=== PATIENT | female | born 1955 | race Caucasian/White ===

== ENCOUNTER → 2023-09-15 08:02 | Outpatient (REF) | payer BC, SELFPAY | LOC: RAD 08:02 | PROVIDERS: ATTENDING PHYSICIAN Family Medicine | DX: R06.02 Shortness of breath (principal) | CPT/HCPCS: 71046 ==

== ENCOUNTER → 2023-09-24 15:44 | Outpatient (REF) | payer BC, SELFPAY | LOC: HWRCS 15:44 | PROVIDERS: ATTENDING PHYSICIAN Family Medicine | DX: R06.02 Shortness of breath (principal) | CPT/HCPCS: 93306 ==

== ENCOUNTER 2023-11-22 15:01 | Inpatient (IN) | payer BC, MEDICARE, SELFPAY ==
[2023-11-22] VITALS (7 sets, daily range): BP systolic 129–155; BP diastolic 69–85; BMI 34.1
[2023-11-22 12:32] LABS: % Basophils 0.7 % (0-2); % Immature Granulocytes 0.4 % (0-0.5); % Lymphocytes 27.3 % (20.5-51.1); % Monocytes 7.9 % (1.7-9.3); % Neutrophils 62.7 % (42.2-75.2); Absolute Basophils 0.1 10^3/uL (0-0.2); Absolute Eosinophils 0.1 10^3/uL (0-0.7); Absolute Lymphocytes 2.3 10^3/uL (1.2-3.4); Absolute Monocytes 0.7 10^3/uL (0.1-0.6); Absolute Neutrophils 5.3 10^3/uL (1.4-6.5); Hematocrit 41.2 % (37.0-47.0); Hemoglobin 13.5 g/dL (12.0-16.0); Mean Corp Hgb Conc. 32.8 g/dL (33.0-37.0); Mean Corpuscular Hgb 29.8 pg (27.0-31.0); Mean Corpuscular Volume 90.9 fL (81.0-99.0); Mean Platelet Volume 11.2 fL (7.4-10.4); Nucleated Red Blood Cells % 0 %; Platelet Count 187 10^3/uL (130-400); Red Blood Cell Count 4.53 10^6/uL (4.20-5.40); Red Cell Dist. Width 13.8 % (11.5-14.5); White Blood Cell Count 8.4 10^3/uL (4.8-10.8)
[2023-11-22 12:41] LABS: INR 1.03; PT 13.3 Sec (11.4-14.6)
[2023-11-22 12:42] LABS: ALT (SGPT) 37 U/L (0-35); APTT 27.8 Sec (23.4-35.0); AST (SGOT) 34 U/L (14-36); Albumin 4.3 g/dl (3.5-5.0); Alkaline Phosphatase 67 U/L (38-126); Blood Urea Nitrogen 21 mg/dl (7-17); Calcium 9.8 mg/dl (8.4-10.2); Carbon Dioxide 23 mmol/L (22-30); Chloride 107 mmol/L (98-107); Glucose 103 mg/dl (70-99); Lipase 190 U/L (23-300); Potassium 4.3 mmol/L (3.5-5.1); Sodium 138 mmol/L (135-145); Total Bilirubin 0.7 mg/dl (0.2-1.3); eGFR > 60.00
--- NOTE | 2023-11-22 14:17 | ED.GENMED ---
History of Present Illness
General
Chief Complaint: Abdominal Symptoms
Source: patient
Exam Limitations: none
Time Seen by Provider: 11/22/23 14:04
Nursing documentation reviewed up to this point in time: agreed with
History of Present Illness
History of Present Illness:
68-year-old female presents emergency room complaining of abdominal cramping, diarrhea and passing blood clots. She takes Eliquis. This began last night.
Past History
Past History
ED Past Medical History: Arrthythmia
ED Past Surgical History: Brain (Meningioma removal 1993) and Orthopedic (Right Achilles tendon repair, right rotator cuff repair)
Social History
Tobacco: Non-smoker
Alcohol: None
Drug: None
Review of Systems
Review of Systems
Allergies reviewed?: Yes
All Other Systems: Not applicable
Constitutional: Reports no symptoms
EENT: Reports no symptoms
Respiratory: Reports no symptoms
Cardiac: Reports no symptoms
ABD/GI: Reports diarrhea and bloody stools
: Reports no symptoms
Musculoskeletal: Reports no symptoms
Skin: Reports no symptoms
Neurological: Reports no symptoms
Endocrine: Reports no symptoms
Hematologic/Lymphatic: Reports no symptoms
Psychiatric: Reports no symptoms
Phy Exam
Physical Exam
Physical Exam:
Physical Exam
General: no apparent distress, not acutely ill
Neck: supple. no meningeal signs. normal posterior pharynx
Heart: s1/s2 regular rate and rhythm, no murmur. equal radial
pulses.
HEENT: Pupils equal round reactive to light, EOMI
Lungs: no acute respiratory distress. clear bilaterally
Abdomen: normal bowel sounds. not tender. no CVAT
Neuro: alert and oriented. no focal neurological deficits cranial nerves II through XII intact
Skin: no rash
Psychiatric: well kept. interactive and cooperative
Extremities: no edema. no calf tenderness. negative homans. good distal pulses
Course
Orders/Labs/Results
Orders:
Orders
11/22/23 12:19
Type+Screen Urgent
Complete Blood Count/With Diff Urgent
Comprehensive Metabolic Panel Urgent
Lipase Urgent
PTT Urgent
Prothrombin Time Urgent
Abnormal Lab Results
11/22/23
12:19
MCHC 32.8 L g/dL
(33.0-37.0)
MPV 11.2 H fL
(7.4-10.4)
Absolute Monos (auto) 0.7 H 10^3/uL
(0.1-0.6)
BUN 21 H mg/dl
(7-17)
Glucose 103 H mg/dl
(70-99)
ALT 37 H U/L
(0-35)
11/22/23 12:19
11/22/23 12:19
Vital Signs
Initial and Last Documented VS:
Initial Vital Signs
Temp Pulse Resp BP Pulse Ox
98.2 F 57 16 153/78 97
11/22/23 12:05 11/22/23 12:05 11/22/23 12:05 11/22/23 12:05 11/22/23 12:05
Last Documented Vital Signs
Temp Pulse Resp BP Pulse Ox
98.2 F 57 16 153/78 97
11/22/23 12:05 11/22/23 12:05 11/22/23 12:05 11/22/23 12:05 11/22/23 12:05
MDM/Problems Addressed
Differential Diagnosis Includes:
GI bleed
MDM/Problems Addressed:
68-year-old female with lower GI bleed, unclear etiology. Patient taking Eliquis. Vital signs stable at this point, admit to hospitalist for further evaluation.
Chronic conditions affecting care: Arrhythmia
Acute Exacerbation and/or Progression of Chronic Illness: Arrhythmia
*Pulse Oximetry
Patient hypoxic: no
*EKG
Interpreted by ED Provider?: NA
*Plush Weaver Interpretation
Rate: normal
Interpretation: normal
Heart Rate: 60
Rhythm: sinus
*Critical Care Note
Total Time (30-74mins, 75-104mins- exclusive of procedures): Not Applicable
Data Reviewed
Review of Other/Old Records Reveals: Labs
Patient Management
Discussion with other providers: Hospitalist
Escalation/DeEscalation of care consider admission/obs:
Admit indicated
ED Attending Note
-
Portions of this chart may have been created with voice recognition software.� Occasional wrong word or��sound alike� substitutions may have occurred due to the inherent limitations of voice recognition software.
Discharge Plan
Departure
Patient Disposition: Admit
Date of Disposition: 11/22/23
Time of Disposition: 14:24
Admit to: Telemetry
Presentation/result/management discussed w/ accepting MD/DO: Hospitalist
Patient with high blood pressure during this ER visit?: Yes
Condition: Good
Discharge Problem:
Gastrointestinal bleeding
Referrals:
Kadie Oh MD [Family Provider] -
Interventions
Interventions:
*General Assessment Last Done: 11/22/23 12:05
*ED COVID-19 Vaccine History Last Done: 11/22/23 12:05
Discharge Date and Time
Print Language: TURKISH
--- NOTE | 2023-11-22 14:50 | HPS.HSE ---
Family Physician
-
Family Physician: Kadie Oh
Chief Complaint
-
Rectal bleed
History of Present Illness
Patient 68 years of history of A-fib on anticoagulation, hyperlipidemia, Barker's esophagus, came into the hospital with bright blood per rectum. Patient states that since last evening after dinner she started having diarrhea followed by a couple
episodes of bright blood per rectum associated with blood clots but patient thought that she was going to improve. This morning patient continued to have bright blood per rectum with more episodes of rectal bleed associated with blood clots so
decided to come to the hospital. She has been complaining of abdominal pain mild to moderate diffuse crampy. She denies fevers or chills. She had some nausea. Denies vomiting. She does take anticoagulation with Eliquis on a regular basis and
last dose she took it last evening around 8 PM. She did have a colonoscopy and an endoscopy relatively recently about a couple years ago but does not know all the details of results. She denies any chest pain or shortness of breath. In the ER
hemoglobin 13.5, BUN 21, she was referred to hospitalist service for further evaluation
Medical History
Past Medical History
Past Medical History: Reports Other (Barker's esophagus, hyperlipidemia, paroxysmal atrial fibrillation.)
Past Surgical History: Reports Other (EGD/colonoscopy couple years ago.)
Social History
Tobacco: Non-smoker
Alcohol: None
Drug: None
Family History
Family History: Not pertinent
Allergies / Home Medications
Allergies reflects when Allergies were last updated in Screen.
Home Medications with original date entered in Screen
Allergy/Medication List:
Allergies
Allergy/AdvReac Type Severity Reaction Status Date / Time
No Known Allergies Allergy Verified 11/22/23 12:13
Home Medications
apixaban 5 mg tablet (Eliquis) 5 mg PO BID 11/22/23
biotin 5 mg tablet 5 mg PO DAILY 11/22/23
cholecalciferol (vitamin D3) 25 mcg (1,000 unit) tablet (Vitamin D3) 25 mcg PO DAILY 11/22/23
magnesium oxide 400 mg PO DAILY 11/22/23
metoprolol tartrate 25 mg tablet 12.5 mg PO BID 11/22/23
rosuvastatin 5 mg tablet 5 mg PO DAILY 11/22/23
therapeutic multivitamin 1 tab PO DAILY 11/22/23
Review of Systems
-
A 12 point ROS was completed and negative except as noted: Yes
Physical Exam
Vital Signs
Vital Signs
Temp Pulse Resp BP Pulse Ox
98.2 F 57 16 153/78 97
11/22/23 12:05 11/22/23 12:05 11/22/23 12:05 11/22/23 12:05 11/22/23 12:05
Physical exam:
General: Acutely ill. Nontoxic
HEENT: Normocephalic, Atraumatic and Moist Mucous Membranes
Respiratory: Clear to Auscultation; Negative Wheezes, Rales or Rhonchi
Cardiac: Regular Rhythm and S1/S2
GI: Soft, Nontender and Nondistended
Musculoskeletal: No Clubbing, No Cyanosis and No Edema
Neuro: Awake, Alert and Oriented
Psych: Calm
Physical Exam
General: Other
Laboratory Results
-
11/22/23 12:19
11/22/23 12:19
Laboratory Results
PT 13.3 Sec (11.4-14.6) 11/22/23 12:19
INR 1.03 11/22/23 12:19
APTT 27.8 Sec (23.4-35.0) 11/22/23 12:19
Total Bilirubin 0.7 mg/dl (0.2-1.3) 11/22/23 12:19
AST 34 U/L (14-36) 11/22/23 12:19
ALT 37 U/L (0-35) H 11/22/23 12:19
Alkaline Phosphatase 67 U/L (38-126) 11/22/23 12:19
Lipase 190 U/L (23-300) 11/22/23 12:19
Data Reviewed
-
Lab Data: Labs Reviewed by me
Impression/Plan
-
IMPRESSION:
Patient is 68 years old female with history of Barker's esophagus and atrial fibrillation came into the hospital with bright blood per rectum. Patient has acute GI bleed. Patient at risk morbidity mortality therefore will need to be monitored in
the hospital and treated accordingly.
PLAN:
Acute GI bleed:
On clear liquid diet
Monitor hemoglobin
IV PPI twice daily
Hold anticoagulant
CTA of the abdomen if gets any worse
Stool studies if diarrhea recurs
Further recommendations based on clinical course
GI consult ([place] texted GI today)
Paroxysmal atrial fibrillation:
Continue rate control agents, metoprolol 12.5 mg twice a day
Hold anticoagulation due to GI bleed
Continue cardiac monitoring
Barker's esophagus:
On H2 garth as outpatient
Currently on PPI
Hyperlipidemia:
Continue statin
DVT prophylaxis:
SCDs
CODE STATUS:
Full code
Time spent 75 minutes
[2023-11-22] MEDS: NSS 1000 IV (15:53)
[2023-11-22] MEDS: CRESTOR 5 MG PO (17:06)
--- NOTE | 2023-11-22 17:46 | PTCARENOTE ---
rec'd pt from the ER. walked from stretcher to bed. denies pain. Nss infusing at 85ml/hr. tolerating clear liquids. call hare in reach.
[2023-11-22] MEDS: PROTONIX IV 40 MG IV (20:15)
[2023-11-22] MEDS: LOPRESSOR 12.5 MG PO (20:15)
[2023-11-22] MEDS: NSS (PRESERVATIVE FREE) 10 ML IV (20:16)
[2023-11-22 20:18] LABS: Hematocrit 38.3 % (37.0-47.0); Hemoglobin 12.6 g/dL (12.0-16.0)
[2023-11-23] MEDS: NSS 1000 IV (02:44)
[2023-11-23] MEDS: TYLENOL 650 MG PO (03:01)
[2023-11-23 03:21] VITALS: BP 156/78
[2023-11-23 06:45] VITALS: BP 163/85
[2023-11-23 07:35] LABS: Hematocrit 40.3 % (37.0-47.0); Hemoglobin 13.1 g/dL (12.0-16.0); Mean Corp Hgb Conc. 32.5 g/dL (33.0-37.0); Mean Corpuscular Hgb 30.2 pg (27.0-31.0); Mean Corpuscular Volume 92.9 fL (81.0-99.0); Mean Platelet Volume 11.4 fL (7.4-10.4); Platelet Count 188 10^3/uL (130-400); Red Blood Cell Count 4.34 10^6/uL (4.20-5.40); Red Cell Dist. Width 13.7 % (11.5-14.5); White Blood Cell Count 6.5 10^3/uL (4.8-10.8)
[2023-11-23 08:12] LABS: Blood Urea Nitrogen 13 mg/dl (7-17); Calcium 9.4 mg/dl (8.4-10.2); Carbon Dioxide 21 mmol/L (22-30); Chloride 110 mmol/L (98-107); Estimated Creatinine Clearance 93 ml/min; Glucose 100 mg/dl (70-99); Potassium 4.5 mmol/L (3.5-5.1); Sodium 138 mmol/L (135-145); eGFR > 60.00
--- NOTE | 2023-11-23 08:30 | W.PN.HOSP.TC ---
Today's Communication/Plan
-
Advance diet. Restart anticoagulation. Monitor hemoglobin
Assessment / Plan
Assessment / Plan
Physical exam:
General: Well Developed, Well Nourished and No Apparent Distress
HEENT: Normocephalic, Atraumatic and Moist Mucous Membranes
Respiratory: Clear to Auscultation; Negative Wheezes, Rales or Rhonchi
Cardiac: Regular Rhythm and S1/S2
GI: Soft, Nontender and Nondistended
Musculoskeletal: No Clubbing, No Cyanosis and No Edema
Neuro: Awake, Alert and Oriented
Psych: Calm
A/P:
Acute GI bleed:
Likely related to acute gastroenteritis superimposed on Eliquis.
GI consult appreciated
GI advance to low residue diet today and okay to restart Eliquis tonight.
If she tolerates Eliquis and diet possible discharge tomorrow.
Change IV Protonix to oral and once a day.
Continue to monitor hemoglobin
Paroxysmal atrial fibrillation:
Continue rate control agents, metoprolol 12.5 mg twice a day
Resume anticoagulation tonight, Eliquis
Continue cardiac monitoring
Barker's esophagus:
On H2 garth as outpatient
Currently on PPI
Hyperlipidemia:
Continue statin
DVT prophylaxis:
SCDs
CODE STATUS:
Full code
Anticipated Discharge: 24 - 48 hours
Subjective/Interval History
-
Date of Service: November 23, 2023
Patient feels better today, no abdominal pain nausea or vomiting. No bowel movement today.
Objective Data
-
Labs:
Laboratory Results
11/23/23
06:59
WBC 6.5
Hgb 13.1
Hct 40.3
Plt Count 188
Sodium 138
Potassium 4.5
Chloride 110 H
Carbon Dioxide 21 L
BUN 13
Creatinine 0.7
Glucose 100 H
Calcium 9.4
Vital Signs:
Vital Signs
Temp Pulse Resp BP Pulse Ox
97.1 F 53 16 163/85 99
11/23/23 06:45 11/23/23 06:45 11/23/23 06:45 11/23/23 06:45 11/23/23 06:45
I&O
11/22/23 11/23/23 11/24/23
06:59 06:59 06:59
Intake Total 0 / 1680
Balance 168 / 0
[2023-11-23] MEDS: CRESTOR 5 MG PO (08:53)
[2023-11-23] MEDS: PROTONIX IV 40 MG IV (08:53)
[2023-11-23] MEDS: NSS (PRESERVATIVE FREE) 10 ML IV (08:53)
[2023-11-23] MEDS: LOPRESSOR 12.5 MG PO ×2 (08:54→20:13)
[2023-11-23 10:23] VITALS: BP 134/73
--- NOTE | 2023-11-23 11:01 | CM ---
terminal manager reviewed patient's chart and met with patient and patient lives alone in a 3rd floor apartment with elevator access, patient is independent with adl's and ambulation, no dme, patient drives.
Pharmacy: [facility]
PCP: Kadie Oh
Plan; Home no needs when stable.
--- NOTE | 2023-11-23 11:30 | CON.GI ---
Consultation
-
Date/Time Consultation Requested: 11/22/23 2:46pm
Date/Time Consultation Performed: 11/23/23 11:31am
Requesting Provider: Paul Centeno
Performing Provider: Hema Kate
Reason for Consultation: GIB
Medical History
Chief Complaint / HPI
Chief Complaint: GIB
History of Present Illness:
Patient is a 68yo female presenting with sudden onset diarrhea, diaphoresis on Friday. She initially had nonbloody diarrhea and then it became bloody throughout the night. By the next morning she was feeling somewhat better but still had bleeding
and was told to go to the ER. Today she feels her symptoms have resolved and has been tolerating a clear liquid diet. She is on Eliquis for history of atrial fibrillation. She had endoscopy and colonoscopy about [address] Trujillo that
was unremarkable. She has a history of Barker's esophagus. Hemoglobin since admission has remained in the 12-13 range.
Past Medical History
Past Medical History: Arrhythmias (Atrial fibrillation) and Other (Barker's esophagus)
Past Surgical History: Other (Meningioma)
Social History
Tobacco: Non-Smoker
Alcohol: None
Family History
Family History: Reviewed & Not Pertinent
Allergies / Home Medications
Allergy/AdvReac Type Severity Reaction Status Date / Time
No Known Allergies Allergy Verified 11/22/23 12:13
�Medication �Instructions �Recorded
apixaban 5 mg tablet (Eliquis) 5 mg PO BID 11/22/23
biotin 5 mg tablet 5 mg PO DAILY 11/22/23
cholecalciferol (vitamin D3) 25 25 mcg PO DAILY 11/22/23
mcg (1,000 unit) tablet (Vitamin
D3)
magnesium oxide 400 mg PO DAILY 11/22/23
metoprolol tartrate 25 mg tablet 12.5 mg PO BID 11/22/23
rosuvastatin 5 mg tablet 5 mg PO DAILY 11/22/23
therapeutic multivitamin 1 tab PO DAILY 11/22/23
Review of Systems
-
All other systems: A 12 pt ROS was Negative except as stated above in HPI
Vital Signs
Temp Pulse Resp BP Pulse Ox
97.9 F 50 16 134/73 96
11/23/23 10:23 11/23/23 10:23 11/23/23 10:23 11/23/23 10:23 11/23/23 10:23
Physical Exam
Exam
General: Well Developed and Well Nourished
HEENT: Normocephalic and Atraumatic
Respiratory: Non Labored Respirations
GI: Soft, Non Tender and Non Distended
Results
WBC 6.5 10^3/uL (4.8-10.8) 11/23/23 06:59
Hgb 13.1 g/dL (12.0-16.0) 11/23/23 06:59
Hct 40.3 % (37.0-47.0) 11/23/23 06:59
MCV 92.9 fL (81.0-99.0) 11/23/23 06:59
Plt Count 188 10^3/uL (130-400) 11/23/23 06:59
Absolute Neuts (auto) 5.3 10^3/uL (1.4-6.5) 11/22/23 12:19
PT 13.3 Sec (11.4-14.6) 11/22/23 12:19
INR 1.03 11/22/23 12:19
APTT 27.8 Sec (23.4-35.0) 11/22/23 12:19
Sodium 138 mmol/L (135-145) 11/23/23 06:59
Potassium 4.5 mmol/L (3.5-5.1) 11/23/23 06:59
Chloride 110 mmol/L (98-107) H 11/23/23 06:59
Carbon Dioxide 21 mmol/L (22-30) L 11/23/23 06:59
BUN 13 mg/dl (7-17) 11/23/23 06:59
Creatinine 0.7 mg/dL (0.6-1.0) 11/23/23 06:59
Calcium 9.4 mg/dl (8.4-10.2) 11/23/23 06:59
Total Bilirubin 0.7 mg/dl (0.2-1.3) 11/22/23 12:19
AST 34 U/L (14-36) 11/22/23 12:19
ALT 37 U/L (0-35) H 11/22/23 12:19
Alkaline Phosphatase 67 U/L (38-126) 11/22/23 12:19
Lipase 190 U/L (23-300) 11/22/23 12:19
Diagnostic Image Results:
Prior GI Procedures:
EGD:
Colonoscopy:
Assessment / Plan
-
Impression:
Sudden onset diarrhea, rectal bleeding, abd cramps
Afib on Eliquis
Barker's
Recomendations:
Symptoms are much improved and essentially resolved
She may have had a viral gastroenteritis and bleeding on Eliquis
Advance to low residue diet
If tolerated, OK to resume eliquis and d/c tomorrow
Had recent colonoscopy couple years ago. I do not see need to repeat at this time. She can f/u with her outpt GI after d/c
-
-
Thank you for consultation and allowing me to participate in the patient's care. Please call the client application support engineer GI physician during the after hours with any questions or concerns.
[2023-11-23 14:53] VITALS: BP 132/70
--- NOTE | 2023-11-23 15:52 | PTOTSP ---
PT evaluation completed. Patient at an independent level for bed mobility, transfers, and ambulation. There are no safety concerns at this time. Recommending discharge home with no needs.
[2023-11-23 19:00] VITALS: BP 130/55
[2023-11-23] MEDS: ELIQUIS 5 MG PO (20:13)
[2023-11-23 23:00] VITALS: BP 150/72
[2023-11-24 03:00] VITALS: BP 162/80
--- NOTE | 2023-11-24 06:50 | W.PN.GI.CBS2 ---
Today's Communication / Plan
-
Tolerated diet
Possible viral gastroenteritis and bleeding on Eliquis
OK to resume eliquis and d/c today
She can f/u with her outpt GI Dr Trujillo after d/c if needed
Assessment / Plan
-
Impression:
Sudden onset diarrhea, rectal bleeding, abd cramps
Afib on Eliquis
Barker's
Subjective
Subjective
Date of Service: November 24, 2023
Tolerated diet. No abd pain. No diarrhea, no bleeding
Objective
Data Reviewed
Laboratory Data:
Laboratory Results
PT 13.3 Sec (11.4-14.6) 11/22/23 12:19
INR 1.03 11/22/23 12:19
APTT 27.8 Sec (23.4-35.0) 11/22/23 12:19
Total Bilirubin 0.7 mg/dl (0.2-1.3) 11/22/23 12:19
AST 34 U/L (14-36) 11/22/23 12:19
ALT 37 U/L (0-35) H 11/22/23 12:19
Alkaline Phosphatase 67 U/L (38-126) 11/22/23 12:19
Lipase 190 U/L (23-300) 11/22/23 12:19
Vital Signs and I&O:
Vital Signs
Temp Pulse Resp BP Pulse Ox
97.9 F 51 18 162/80 94
11/24/23 03:00 11/24/23 03:00 11/24/23 03:00 11/24/23 03:00 11/24/23 03:00
I&O
11/22/23 11/23/23 11/24/23
06:59 06:59 06:59
Intake Total 1680 / 1680 960 / 960
Balance 1680 / 1680 960 / 960
Physical Exam
Physical Exam
GI: Soft, Non Distended and Non Tender
[2023-11-24 07:42] VITALS: BP 160/79
[2023-11-24 07:49] LABS: Hematocrit 39.6 % (37.0-47.0); Hemoglobin 13.2 g/dL (12.0-16.0); Mean Corp Hgb Conc. 33.3 g/dL (33.0-37.0); Mean Platelet Volume 11.2 fL (7.4-10.4); Platelet Count 196 10^3/uL (130-400); Red Cell Dist. Width 13.6 % (11.5-14.5); White Blood Cell Count 5.2 10^3/uL (4.8-10.8)
[2023-11-24 08:30] LABS: Blood Urea Nitrogen 13 mg/dl (7-17); Calcium 9.8 mg/dl (8.4-10.2); Carbon Dioxide 27 mmol/L (22-30); Chloride 106 mmol/L (98-107); Estimated Creatinine Clearance 93 ml/min; Glucose 100 mg/dl (70-99); Potassium 4.4 mmol/L (3.5-5.1); Sodium 141 mmol/L (135-145); eGFR > 60.00
[2023-11-24] MEDS: CRESTOR 5 MG PO (08:49)
[2023-11-24] MEDS: PROTONIX 40 MG PO (08:49)
[2023-11-24] MEDS: LOPRESSOR 12.5 MG PO (08:49)
[2023-11-24] MEDS: ELIQUIS 5 MG PO (08:49)
--- NOTE | 2023-11-24 10:06 | W.DCSUMMARY ---
Discharge Summary
Discharge Data
Date of Admission: 11/22/23
Date of Discharge: 11/24/23
-
Pending Results: No
Hospital Course
68 years old female presented with rectal bleeding and was diagnosed with gastroenteritis, possible viral in origin. Her rectal bleeding was exacerbated by Eliquis. Her hemoglobin remained stable between 12 - 13. She did not have significant
abdominal pain. Patient was followed by [facility]ier. Her diet was resumed gradually and she tolerated that well. Eliquis was resumed without exacerbation of rectal bleeding. Patient was noted to have bradycardia, asymptomatic. She
remained in sinus rhythm. Patient is following actively with wellness director, she was advised to schedule a sooner appointment for follow-up. Patient remained hemodynamically stable and was discharged in a stable condition.
Physical exam:
General: Well Developed, Well Nourished and No Apparent Distress
HEENT: Normocephalic, Atraumatic and Moist Mucous Membranes
Respiratory: Clear to Auscultation; Negative Wheezes, Rales or Rhonchi
Cardiac: Regular Rhythm and S1/S2
GI: Soft, Nontender and Nondistended
Musculoskeletal: No Clubbing, No Cyanosis and No Edema
Neuro: Awake, Alert and Oriented
Psych: Calm
Total discharge time spent to see the patient on the floor, examine the patient, review data and lab results, discuss discharge plan with patient, nursing staff around 65 minutes
Discharge Plan
-
Patient Disposition: Home (Routine Discharge)
Discharge Diagnosis/Procedures: Acute rectal bleeding secondary to acute gastroenteritis, possibly viral in origin.
Diet: As tolerated
Activity: No restrictions
Driving Restrictions: As prior to admission
Activity Restrictions/Additional Instructions:
return to work on 11/25
Referrals:
Tank Trujillo MD [Non-Admitting Privileges] - in two to three weeks
Kadie Oh MD [Family Provider] - in less than 1 week
Jeff Arreguin MD [Active] - (Call to make a sooner appointment )
Prescriptions:
Continued
Eliquis 5 mg Tablet
5 mg PO BID
rosuvastatin 5 mg Tablet
5 mg PO DAILY
metoprolol tartrate 25 mg Tablet
12.5 mg PO BID
therapeutic multivitamin Tablet
1 tab PO DAILY
cholecalciferol (vitamin D3) [Vitamin D3] 25 mcg (1,000 unit) Tablet
25 mcg PO DAILY
biotin 5 mg Tablet
5 mg PO DAILY
magnesium oxide 400 mg magnesium Tablet
400 mg PO DAILY
Discharge Orders:
Discharge Patient (As Directed); Ordered 11/24/23
Ordered By: Rabia Li
Discharge Date and Time
Print Language: FAROESE
[2023-11-24 10:37] VITALS: BP 149/72
--- NOTE | 2023-11-24 10:58 | CM ---
Patient seen bedside, reports no needs to CM. Patient reports she drove herself to hospital, will drive self home. CM will continue to follow for all discharge planning needs.
Plan; home no needs, patient to transport self home.
[2023-11-24 21:04] LABS: Hepatitis C Antibody Negative (Negative)
== END 2023-11-24 11:08 | disposition home or self-care (01) | DRG 392 ==
LOC: 4 WEST ACU 15:01
PROVIDERS: Emergency Medicine; ADMITTING PHYSICIAN Hospitalist; ATTENDING PHYSICIAN Internal Medicine; CONSULT PHYSICIAN Specialist; EMERGENCY PHYSICIAN Emergency Medicine; FAMILY PHYSICIAN Family Medicine
DX: A08.4 Viral intestinal infection, unspecified (principal); K62.5 Hemorrhage of anus and rectum; D68.32 Hemorrhagic disorder due to extrinsic circulating anticoagulants; I48.0 Paroxysmal atrial fibrillation; E78.5 Hyperlipidemia, unspecified; K22.70 Barrett's esophagus without dysplasia; R00.1 Bradycardia, unspecified; T45.515A Adverse effect of anticoagulants, initial encounter; Z79.01 Long term (current) use of anticoagulants
CPT/HCPCS: 80048; 80053; 83690; 85014; 85018; 85025; 85027; 85610; 85730; 86803; 86850; 86900; 86901; 96360; 97161; 99284

== ENCOUNTER → 2024-02-11 19:15 | Outpatient (REF) | payer BC, MEDICARE, SELFPAY | LOC: WDC 19:15 | PROVIDERS: ATTENDING PHYSICIAN Nurse Practitioner Adult Health; FAMILY PHYSICIAN Family Medicine | DX: Z12.31 Encounter for screening mammogram for malignant neoplasm of breast (principal) | CPT/HCPCS: 77063; 77067 ==

== ENCOUNTER → 2024-02-27 10:52 | Outpatient (REF) | payer BC, SELFPAY | LOC: RAD 10:52 | PROVIDERS: ATTENDING PHYSICIAN Nurse Practitioner Adult Health; FAMILY PHYSICIAN Family Medicine | DX: Z78.0 Asymptomatic menopausal state (principal) | CPT/HCPCS: 77080 ==

== ENCOUNTER → 2024-05-03 13:46 | Outpatient (REF) | payer BC, SELFPAY | LOC: EMG 13:46 | PROVIDERS: ATTENDING PHYSICIAN Student in an Organized Health Care Education/Training Program; FAMILY PHYSICIAN Family Medicine; REFERRING PHYSICIAN Psychiatry & Neurology Neurology | DX: R20.0 Anesthesia of skin (principal) | CPT/HCPCS: 95886; 95911 ==

== ENCOUNTER → 2025-01-28 14:38 | Outpatient (REF) | payer BC, SELFPAY | LOC: HWRCS 14:38 | PROVIDERS: ATTENDING PHYSICIAN Internal Medicine Cardiovascular Disease; FAMILY PHYSICIAN Family Medicine | DX: R00.2 Palpitations (principal) | CPT/HCPCS: 93306 ==

== ENCOUNTER → 2025-02-03 07:31 | Outpatient (REF) | payer BC, SELFPAY | LOC: HWRCS 07:31 | PROVIDERS: ATTENDING PHYSICIAN Internal Medicine Cardiovascular Disease; FAMILY PHYSICIAN Family Medicine | DX: R00.2 Palpitations (principal) | CPT/HCPCS: 78452; 93017; A9500; J2785 ==